=== PATIENT | female | born 1945 | race Caucasian/White ===

== ENCOUNTER 2022-05-25 11:17 | Outpatient (CLI) | payer MEDICARE, BC, SELFPAY | END 2022-05-25 11:18 | disposition home or self-care (01) | LOC: NFLDREF 11:19 | PROVIDERS: PCP Surgery; Visit Provider Obstetrics & Gynecology | DX: R30.0 Dysuria (principal); N90.0 Mild vulvar dysplasia; N90.4 Leukoplakia of vulva | CPT/HCPCS: 87077; 87086; 87186 ==

== ENCOUNTER 2024-07-08 14:05 | Outpatient (CLI) | payer MEDICARE, BC, SELFPAY ==
--- NOTE | 2024-07-08 14:30 | MR_ITS ---
[address] [address] Phone:?[phone] Fax:?[phone] Referring Physician Information: Isauro Rodriguez M.D. [id number] [facility] [address] Phone:?[phone] Fax:?[phone] Patient:Atul Willett D.O.B:?1945 Sex:?Female Phone:?[phone] [facility] MRN:?[id number] Exam Date:?07/08/2024 EXAM: MRI EXAMINATION OF THE LEFT HIP CLINICAL INFORMATION: The patient is an 79-year-old with left hip pain. Evaluate for musculotendinous injury. PRIOR SURGERY: The patient is status post bilateral hip arthroplasties. COMPARISON STUDIES: Comparison is made to prior radiographs dated 06/30/2024. TECHNICAL INFORMATION: Using a 1.5T MR scanner and MARS metal suppression technique: 4.0 mm?coronals: PD, T2 4.0 mm?sagittals: PD, T2 4.0 mm?axial obliques: PD 4.0 mm?axials straight: T2FS 5.0 mm?coronals: T1, STIR of pelvis including hips FINDINGS: The patient is status post left hip arthroplasty. No well-defined fracture, loosening, or osteolysis can be seen about the femoral or acetabular components of the device. No evidence for acute bony abnormality of the pelvis can be seen. The sacrum and sacroiliac joints appear normal. No abnormalities of the symphysis pubis are present. No definite bony abnormalities are seen about the components of the right hip arthroplasty. No definite evidence for well-defined soft tissue mass or abnormal fluid collection can be seen about the left hip arthroplasty. No MR signs of adverse tissue reaction can be seen. The left distal gluteal tendons are abnormal in appearance. There is a suspected chronic appearing avulsion of the distal gluteus and edematous tendon seen on coronal series 5 image 8 with atrophic changes of the gluteus minimus muscle belly. Tendinosis and partial-thickness tearing of the left distal gluteus medius tendon can be seen without definite evidence for rupture or retraction. No other abnormalities of the gluteal musculature can be seen. The left common hamstrings origin appears intact. No abnormalities of the left adductor compartment can be seen. The left iliopsoas is within normal limits. Mild fluid is seen within the left greater trochanteric bursa, in keeping with mild bursitis. No other abnormal bursal fluid collections about the left hip are seen. No intrapelvic abnormalities are identified. Degenerative disc disease of the lower lumbar spine is noted. CONCLUSION: 1. Status post left hip arthroplasty. No well-defined fracture, loosening, or osteolysis about the device can be seen. 2. Chronic appearing avulsion of the left distal gluteus minimus with atrophic changes of the gluteus minimus muscle belly. 3. Tendinosis and partial-thickness tearing of the left distal gluteus medius with adjacent mild left greater trochanteric bursitis. 4. No acute bony abnormalities of the pelvis are seen. 5. Degenerative disc disease of the lower lumbar spine. [facility] Electronically signed on 07/09/2024 1:25:00 PM by Johan Borges M.D.
== END 2024-07-08 14:06 | disposition home or self-care (01) ==
LOC: MRI 14:09
PROVIDERS: PCP Surgery; Visit Provider Orthopaedic Surgery Sports Medicine
DX: M25.552 Pain in left hip (principal); S76.012A Strain of muscle, fascia and tendon of left hip, initial encounter; M70.62 Trochanteric bursitis, left hip; M51.369 Other intervertebral disc degeneration, lumbar region without mention of lumbar back pain or lower extremity pain
CPT/HCPCS: 73721

== ENCOUNTER 2024-07-13 05:27 | Emergency (ER) | payer MEDICARE, BC, SELFPAY ==
[2024-07-13 05:37] VITALS: BP 160/92; PULSE 84; RESP 18; TEMP 36.4; O2SAT 95; BMI 29.2
--- NOTE | 2024-07-13 05:45 | CRLHL7_ITS ---
For Patients: As a result of the Cures Act, medical imaging exams and procedure reports are released immediately into your electronic medical record. You may view this report before your referring provider. If you have questions, please contact your health care provider. Indication: Fall 1 week ago Technique: Left knee 3 views Comparison: None Findings: Bones: No evidence of fracture. Osteopenia. Joint spaces: Trace patellofemoral osteophytes. No knee effusion. Soft tissues: Unremarkable. Impression: Trace osteoarthritis without evidence of fracture. Osteopenia. Dictated by Neymar Kay MD @ 07/13/2024 6:09:15 AM (Electronically Signed)
--- NOTE | 2024-07-13 05:49 | ED_ITS ---
HPI - General Adult General Date Seen: 07/13/24 Chief complaint: Extremity Pain/Injury, Lower Stated complaint: LT leg pain after fall x1 week ago Time Seen by Provider: 07/13/24 05:32 Source: patient Mode of arrival: ambulatory Limitations: no limitations History of Present Illness HPI narrative: Patient is an 79-year-old woman here with her for evaluation of her left leg. She notes that for about a month now she has been having pain in the left hip with radiation down to the knee. She did see Dr. Bryan about this on June 30. At that time, there was question of possible sartorius tear/hip sprain. He ordered an MRI which she had on the . Between her visit and the MRI, she had a fall where she stumbled and landed on her left knee. She continues to have pain in her left hip, but a few days after the fall she says she also developed pain in the knee itself. She also notes that the pain in her hip seems to go all the way down the leg now. She does not have back pain. Notably, she does not have pain at rest, only with weight-bearing. She has an appointment with Dr. Bryan tomorrow, but pain was unbearable this morning. She does not use a walker or cane. She has not had swelling or deformity in the knee, but is worried that she might have injured the knee in this fall. Related Data Home Medications ?Medication ?Instructions ?Recorded ?Confirmed amlodipine 2.5 mg tablet mg PO DAILY 05/25/22 06/30/24 ascorbic acid (vitamin C) 1,000 mg 1 g PO BID 05/25/22 06/30/24 tablet atorvastatin 10 mg tablet mg PO .Bedtime 05/25/22 06/30/24 calcium 500 mg (as 1 tab PO 05/25/22 06/30/24 carbonate)-vitamin D3 10 mcg (400 unit) tablet hydrocortisone 2.5 % topical cream 1 applic topical PRN 05/25/22 06/30/24 ketoconazole 2 % shampoo 1 topical .3-4X/Week 05/25/22 06/30/24 meclizine 25 mg tablet 25 mg PO PRN 05/25/22 06/30/24 multivitamin 1 tab PO QAM 09/09/22 10/15/24 omega-3 fatty acids 500 mg capsule 500 mg PO QDAY 05/25/22 06/30/24 pantoprazole 40 mg tablet,delayed mg PO DAILY 05/25/22 06/30/24 release triamcinolone acetonide 0.5 % 1 applic topical .1-2 Times/Week 05/25/22 06/30/24 topical cream Previous Rx's ?Medication ?Instructions ?Recorded triamcinolone acetonide 0.5 % 1 applic topical BID PRN itch 1 07/25/23 topical ointment week #30 grams Allergies Allergy/AdvReac Type Severity Reaction Status Date / Time hydrocodone Allergy Intermediate Itching Verified 06/30/24 12:54 losartan Allergy Intermediate Unknown Verified 06/30/24 12:54 hydrochlorothiazide Allergy Mild Unknown Verified 06/30/24 12:54 lisinopril Allergy Mild Unknown Verified 06/30/24 12:54 Influenza A virus Allergy Severe Severe Uncoded 06/30/24 12:54 illness PFSH PFS Medical History (Updated 07/13/24 @ 06:27 by Ann Ching MD) Arthritis ?M19.90 - Unspecified osteoarthritis, unspecified site (ICD-10) Vulvar intraepithelial neoplasia (DANIELLA) grade 1 ?N90.0 - Mild vulvar dysplasia (ICD-10) Lichen sclerosus of female genitalia ?N90.4 - Leukoplakia of vulva (ICD-10) Dysuria ?R30.0 - Dysuria (ICD-10) Chest pain (06/16/11) ?R07.9 - Chest pain, unspecified (ICD-10) Surgical History (Updated 06/30/24 @ 13:32 by Mariah Wood) S/P foot surgery, right (10/06/13) ?Z98.890 - Other specified postprocedural states (ICD-10) Status post right rotator cuff repair (09/20/15) ?Z98.890 - Other specified postprocedural states (ICD-10) Status post right hip replacement (12/25/21) ?Z96.641 - Presence of right artificial hip joint (ICD-10) Status post left hip replacement (10/09/21) ?Z96.642 - Presence of left artificial hip joint (ICD-10) Social History Smoking Status: Never smoker Do you use any of these nicotine containing products: None Second hand tobacco smoke exposure: No How often do you have a drink containing alcohol: never AUDIT-C Alcohol total score: 0 Non-prescribed substance use: denies use service: No Exam Narrative: Exam Narrative: Vital signs reviewed In general, alert, well-appearing elderly woman. Extremities: Examination of the left leg shows it to be normal in appearance. Specifically the knee is normal, no erythema, deformity, effusion, or tenderness. Range of motion is full. Range of motion of the hip is full. Today, she does not have as much tenderness over the ASIS, she does have tenderness over the gluteus medius. No significant tenderness over the trochanteric bursa today. Distal CMS is normal. skin: Warm and dry, well perfused. No rash, bruising, erythema or warmth. Const: Vital Signs, click to edit/add: Vital Signs - 24 hr 07/13/24 05:37 Temperature 97.6 F Pulse Rate [Pulse Oximeter] 84 Respiratory Rate 18 Blood Pressure [Ri ght Upper Arm] 160/92 H Pulse Oximetry 95 Oxygen Delivery Me thod Room Air Documenting provider has reviewed patient's vital signs: yes Course Course ED Course: I ordered 2.5 mg of oxycodone for her here, she says Tylenol has not been helping at all. Will get x-rays of the knee. Given that she only has pain with weight-bearing am less suspicious of a radicular problem. MRI results were reviewed and are as follows: CONCLUSION: 1. Status post left hip arthroplasty. No well-defined fracture, loosening, or osteolysis about the device can be seen. 2. Chronic appearing avulsion of the left distal gluteus minimus with atrophic changes of the gluteus minimus muscle belly. 3. Tendinosis and partial-thickness tearing of the left distal gluteus medius with adjacent mild left greater trochanteric bursitis. 4. No acute bony abnormalities of the pelvis are seen. 5. Degenerative disc disease of the lower lumbar spine. It would appear the only acute problem is this tendinosis of the left distal gluteus medius with mild trochanteric bursitis. Today on exam, she does have tenderness over the gluteus medius, discussed that tendinopathy may be the cause for her symptoms. Knee x-rays by my review are negative, final radiology read likewise negative for acute findings, link below. She has a walker at home, does not historically use it but I have suggested that she use a walker or cane in the near term just to help rest the hip joint a little bit. Follow-up with Dr. Bryan tomorrow. I prescribed oxycodone, 4 tablets from [facility], she can use 1/2 tablets sparingly as needed in addition to her Tylenol. Narcotic risks discussed. Vital Signs Vital signs: Initial Vital Signs Temperature 97.6 F 07/13/24 05:37 Temperature Source Temporal Artery Scan 07/13/24 05:37 Pulse Rate 84 07/13/24 05:37 Pulse Rhythm Regular 07/13/24 05:37 Respiratory Rate 18 07/13/24 05:37 Blood Pressure 160/92 H 07/13/24 05:37 Blood Pressure Mean 114 H 07/13/24 05:37 Blood Pressure Position Supine 07/13/24 05:37 Pulse Oximetry 95 07/13/24 05:37 Oxygen Delivery Method Room Air 07/13/24 05:37 Vital Signs Temperature 97.6 F 07/13/24 05:37 Pulse Rate 84 07/13/24 05:37 Respiratory Rate 18 07/13/24 05:37 Blood Pressure 160/92 H 07/13/24 05:37 Pulse Oximetry 95 07/13/24 05:37 Oxygen Delivery Method Room Air 07/13/24 05:37 Temperature 97.6 F 07/13/24 05:37 Pulse Rate 84 07/13/24 05:37 Respiratory Rate 18 07/13/24 05:37 Blood Pressure 160/92 H 07/13/24 05:37 Pulse Oximetry 95 07/13/24 05:37 Oxygen Delivery Method Room Air 07/13/24 05:37 Medical Decision Making Imaging Data Left knee x-ray: Radiologist's impression: Patient: Darcy Wileltt MR#: [id number] : 1945 Acct:[id number] Loc: ED Service Date: 07/13/[address]: Ordering Physician: Ann Ching M.D. Date of Service: 07/13/24 Procedure(s): XR knee LT 3V Accession Number(s): [id number] cc: Ann Ching M.D.; Brody Navarro M.D.~ For Patients: As a result of the Century Cures Act, medical imaging exams and procedure reports are released immediately into your electronic medical record. You may view this report before your referring provider. If you have questions, please contact your health care provider. Indication: Fall 1 week ago Technique: Left knee 3 views Comparison: None Findings: Bones: No evidence of fracture. Osteopenia. Joint spaces: Trace patellofemoral osteophytes. No knee effusion. Soft tissues: Unremarkable. Impression: Trace osteoarthritis without evidence of fracture. Osteopenia. Dictated by Neymar Kay MD @ 07/13/2024 6:09:15 AM Discharge Plan Discharge Clinical Impression: Strain of left hip Qualifiers: Encounter type: initial encounter Qualified Code(s): S76.012A - Strain of muscle, fascia and tendon of left hip, initial encounter Patient Disposition: Home, Self-Care Condition: Stable Instructions: Muscle Strain (DC) Additional Instructions: Tylenol 1000 mg 3 times daily. Oxycodone, 2 and half to 5 mg if needed for uncontrolled pain. I would recommend use of a walker or cane in the short-term. Follow up with Dr. Bryan as planned tomorrow. X-rays today are reassuring and do not show any evidence of broken bones in the knee joint. Prescriptions: No Action pantoprazole 40 mg tablet,delayed release (DR/EC) PO DAILY atorvastatin 10 mg tablet PO .Bedtime amlodipine 2.5 mg tablet PO DAILY calcium carbonate-vitamin D3 500 mg-10 mcg (400 unit) tablet 1 tab PO hydrocortisone 2.5 % cream 1 applic topical PRN meclizine 25 mg tablet 25 mg PO PRN ketoconazole 2 % shampoo 1 topical .3-4X/Week ascorbic acid (vitamin C) 1,000 mg tablet 1 g PO BID omega-3 fatty acids 500 mg capsule 500 mg PO QDAY multivitamin Tablet 1 tab PO QAM triamcinolone acetonide 0.5 % cream 1 applic topical .1-2 Times/Week triamcinolone acetonide 0.5 % ointment 1 applic topical BID PRN (Reason: itch) 7 Days Qty: 30 12RF Follow Up/Referrals: Brody Navarro MD [Primary Care Provider] - Stand Alone Forms: Interventional Spine Info Instructions
== END 2024-07-13 06:43 | disposition home or self-care (01) ==
LOC: ED 06:39
PROVIDERS: Emergency Provider Emergency Medicine; PCP Surgery
DX: S76.912A Strain of unspecified muscles, fascia and tendons at thigh level, left thigh, initial encounter (principal)
CPT/HCPCS: 73562; 99283; 99284